=== PATIENT | female | born 1960 | race African-American/Black ===

== ENCOUNTER 2017-03-19 14:41 | Emergency (ER) | payer SELFPAY | END 2017-03-19 15:11 | disposition home or self-care (01) | LOC: MADERS 14:41 | DX: S46.912A Strain of unspecified muscle, fascia and tendon at shoulder and upper arm level, left arm, initial encounter (principal); I10 Essential (primary) hypertension; F17.220 Nicotine dependence, chewing tobacco, uncomplicated; Z86.19 Personal history of other infectious and parasitic diseases; X50.3XXA Overexertion from repetitive movements, initial encounter; Y92.69 Other specified industrial and construction area as the place of occurrence of the external cause; Y99.0 Civilian activity done for income or pay | CPT/HCPCS: 99283 ==

== ENCOUNTER 2017-05-06 13:09 | Emergency (ER) | payer OTHER, SELFPAY | END 2017-05-06 13:32 | disposition home or self-care (01) | LOC: MADERS 13:09 | DX: K02.9 Dental caries, unspecified (principal); I10 Essential (primary) hypertension; F17.220 Nicotine dependence, chewing tobacco, uncomplicated | CPT/HCPCS: 99282 ==

== ENCOUNTER 2018-08-09 15:43 | Emergency (ER) | payer SELFPAY | END 2018-08-09 16:20 | disposition home or self-care (01) | LOC: MADERS 15:43 | DX: S01.01XD Laceration without foreign body of scalp, subsequent encounter (principal); F17.220 Nicotine dependence, chewing tobacco, uncomplicated; I10 Essential (primary) hypertension ==

== ENCOUNTER 2019-02-13 17:07 | Emergency (ER) | payer BC, SELFPAY ==
[2019-02-13] MEDS ORDERED: Lidocaine 1% w/Epinephrine 1:100K 30 ML VIAL ONE (17:21)
[2019-02-13] MEDS ORDERED: Bacitracin Zinc 1 Packet ONE (17:58)
--- NOTE | 2019-02-13 18:49 | CT ---
CT OF THE BRAIN WITHOUT CONTRAST: Indication: History of head injury after fall from porch. Comparison: 07-27-18 FINDINGS: There is a prominent left parietal scalp contusion. 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 There is a moderate chronic small vessel ischemic change, stable. No acute i nfarct, hemorrhage, or hydrocephalus is present. There is prominent cerebral cerumen build up within the external auditory canal. Visualized paranasal sinuses and skull is intact. IMPRESSION: 1. No acute intracranial abnormality. 2. Chronic ischemic change as above. 3. Left parietal scalp contusion. 4. Prominent cerumen buildup within the right external auditory canal. POS: BH
== END 2019-02-13 18:08 | disposition home or self-care (01) ==
LOC: MADERS 17:07
DX: S01.01XA Laceration without foreign body of scalp, initial encounter (principal); F10.129 Alcohol abuse with intoxication, unspecified; F17.220 Nicotine dependence, chewing tobacco, uncomplicated; W19.XXXA Unspecified fall, initial encounter
CPT/HCPCS: 12002; 70450; J2001

== ENCOUNTER 2019-03-25 17:23 | Emergency (ER) | payer SELFPAY | END 2019-03-25 18:10 | disposition home or self-care (01) | LOC: MADERS 17:23 | DX: S01.01XD Laceration without foreign body of scalp, subsequent encounter (principal); I10 Essential (primary) hypertension; F17.220 Nicotine dependence, chewing tobacco, uncomplicated ==

== ENCOUNTER 2019-06-14 14:49 | Emergency (ER) | payer SELFPAY ==
[2019-06-14] MEDS ORDERED: Lisinopril 10 MG TAB ONE (15:24)
[2019-06-14] MEDS ORDERED: Metoprolol Tartrate 50 MG TAB ONE (15:24)
== END 2019-06-14 16:11 | disposition home or self-care (01) ==
LOC: MADERS 14:49
DX: I10 Essential (primary) hypertension (principal); M17.11 Unilateral primary osteoarthritis, right knee; F17.220 Nicotine dependence, chewing tobacco, uncomplicated; F31.9 Bipolar disorder, unspecified
CPT/HCPCS: 99283

== ENCOUNTER 2019-09-12 18:19 | Emergency (ER) | payer BC ==
[2019-09-12 18:49] LABS: Bilirubin Negative (Negative); Blood, Urine Moderate (Negative); Clarity Clear (Clear); Glucose, Urine (Dipstick) Negative (Negative); Leukocyte Negative (Negative); Nitrite Negative (Negative); Protein, Urine (Dipstick) Negative (Neg-Trace); Urobilinogen 0.2 mg/dL (Less than 2)
[2019-09-12 18:56] LABS: Bacteria/HPF Rare-Few HPF (None Seen); RBC/HPF 0-3 HPF (0-3); Squamous Epithelial 0-3 HPF (0-3); WBC/HPF None Seen HPF (0-3)
[2019-09-12 19:18] LABS: Wet Prep Clue Cells Clue Cells Absent (None Seen); Wet Prep Spermatozoa 2nd Revie Agree with result (None Seen); Wet Prep Trichomonas Trichomonas Absent (None Seen)
[2019-09-12] MEDS ORDERED: Azithromycin 250 MG TAB ONE (20:10)
[2019-09-12] MEDS ORDERED: cefTRIAXone\\ROCEPHIN 250 MG VIAL ONE (20:10)
== END 2019-09-12 20:34 | disposition home or self-care (01) ==
LOC: MADERS 18:19
DX: N72 Inflammatory disease of cervix uteri (principal); I10 Essential (primary) hypertension; F31.9 Bipolar disorder, unspecified; F17.220 Nicotine dependence, chewing tobacco, uncomplicated
CPT/HCPCS: 81003; 81015; 87086; 87210; 87491; 87591; 96372; 99284; J0696

== ENCOUNTER 2020-05-18 12:57 | Emergency (ER) | payer BC, SELFPAY ==
[~2020-05-18 12:57] MED LIST: Sodium Chloride Irrig Solution 250 ML BOT ONE
[2020-05-18] MEDS ORDERED: Bacitracin 1 PK ONE ×2 (13:18→13:19)
[2020-05-18] MEDS ORDERED: Lidocaine 1% 20 ML MDV ONE (13:18)
[2020-05-18] MEDS ORDERED: HYDROcodone/Acetaminophen 5/325 mg Tablet ONE (13:38)
[2020-05-18] MEDS ORDERED: Ibuprofen 800 MG TAB ONE (13:38)
== END 2020-05-18 14:00 | disposition home or self-care (01) ==
LOC: MADERS 12:57
DX: S61.215A Laceration without foreign body of left ring finger without damage to nail, initial encounter (principal); I10 Essential (primary) hypertension; B19.20 Unspecified viral hepatitis C without hepatic coma; F31.9 Bipolar disorder, unspecified; F17.220 Nicotine dependence, chewing tobacco, uncomplicated; Z79.899 Other long term (current) drug therapy; W26.0XXA Contact with knife, initial encounter
CPT/HCPCS: 12001; J2001

== ENCOUNTER 2020-05-24 10:53 | Outpatient (CLI) | payer OTHER | END 2020-05-24 10:54 | disposition home or self-care (01) | LOC: MADLABBHPM 10:53 | PROVIDERS: ATTEND Family Medicine | DX: Z51.81 Encounter for therapeutic drug level monitoring (principal); Z79.899 Other long term (current) drug therapy | CPT/HCPCS: 80305 ==

== ENCOUNTER 2020-10-19 08:13 | Emergency (ER) | payer SELFPAY ==
[2020-10-19 22:45] LABS: SARS-CoV-2 MS2 Positive; SARS-CoV-2 N Gene Negative; SARS-CoV-2 S Gene Negative; SARS-CoV-2 by NAA Not Detected (NotDetected); SARS-CoV-2 orf1ab Negative
== END 2020-10-19 08:50 | disposition home or self-care (01) ==
LOC: MADERS 08:13
DX: R05 Cough (principal); Z20.828 Contact with and (suspected) exposure to other viral communicable diseases; F31.9 Bipolar disorder, unspecified; F17.220 Nicotine dependence, chewing tobacco, uncomplicated; I10 Essential (primary) hypertension
CPT/HCPCS: 87635; 99283; U0003

== ENCOUNTER 2020-11-11 13:23 | Emergency (ER) | payer SELFPAY ==
[2020-11-12 06:32] LABS: SARS-CoV-2 MS2 Positive; SARS-CoV-2 N Gene Negative; SARS-CoV-2 S Gene Negative; SARS-CoV-2 by NAA Not Detected (NotDetected); SARS-CoV-2 orf1ab Negative
== END 2020-11-11 14:00 ==
LOC: MADERS 13:23
DX: R00.0 Tachycardia, unspecified (principal); Z20.828 Contact with and (suspected) exposure to other viral communicable diseases; I10 Essential (primary) hypertension; F17.220 Nicotine dependence, chewing tobacco, uncomplicated
CPT/HCPCS: 87635; 99283; U0003